=== PATIENT | female | born 1990 | race Caucasian/White ===

== ENCOUNTER 2017-08-14 08:56 | Inpatient (IN) | payer OTHER, SELFPAY ==
[~2017-08-14] VITALS: Ht 170.2 cm; Wt 83.0 kg
[2017-08-14] MEDS ORDERED: DEXAMETHASONE 4 MG/ML, 5ML ONE (09:56)
[2017-08-14] MEDS ORDERED: SODIUM CHLORIDE 0.9% 1,000ML IVBOLUS ONE (10:00)
[2017-08-14 10:37] LABS: HEMATOCRIT 43.3 % (34.6-47.8); HEMOGLOBIN 14.7 g/dL (11.7-16.4); WHITE BLOOD COUNT 20.2 x10^3/uL (3.4-10)
[2017-08-14 10:38] LABS: BLOOD UREA NITROGEN 7 mg/dL (7-18)
[2017-08-14 10:46] LABS: DIFF TOTAL CELLS COUNTED 100 CELL DIFF
[2017-08-14] MEDS ORDERED: DEXAMETHASONE 4 MG/ML, 1ML PO ONE (11:00)
[2017-08-14] MEDS ORDERED: OMNIPAQUE 350 MG/ML, 100ML BOTTLE ONE (11:00)
[2017-08-14 11:14] LABS: LARGE PLATELETS 1+; VERIFY COUNTS? YES
[2017-08-14] MEDS ORDERED: LIDOCAINE 1%, 20ML ONE (11:57)
[2017-08-14] MEDS ORDERED: BENZOCAINE 20% SPRAY 0.5ML ONE (11:57)
[2017-08-14] MEDS ORDERED: AMPICILLIN/SULBACTAM 3 GM in SODIUM CHLORIDE 0.9% 100 ML IV ONE (12:00)
[2017-08-14] MEDS ORDERED: DEXAMETHASONE 4 MG/ML, 1ML IVPush ONE (12:00)
[2017-08-14] MEDS ORDERED: DEXAMETHASONE 4 MG/ML, 1ML ONE (12:17)
[2017-08-14 14:24] VITALS: BP 134/89
[2017-08-14] MEDS ORDERED: LACTATED RINGERS 1,000 ML IV SCH (15:30)
[2017-08-14] MEDS ORDERED: morphine SULFATE 10 MG/ML, 1ML IVPush PRN (15:30)
[2017-08-14] MEDS ORDERED: ONDANSETRON 2MG/ML, 2ML IVPush PRN (15:30)
[2017-08-14] MEDS: HYDROcodone/APAP 7.5-325MG/15ML UDC PO PRN (15:49)
[2017-08-14 16:01] VITALS: BP 134/89
[2017-08-14] MEDS: AMPICILLIN/SULBACTAM 3 GM in SODIUM CHLORIDE 0.9% 100 ML IV SCH (18:00)
[2017-08-14 20:00] VITALS: BP 129/83
[2017-08-14] MEDS: DEXAMETHASONE 10 MG in SODIUM CHLORIDE 0.9% 50 ML IV SCH (20:46)
[2017-08-15] MEDS: AMPICILLIN/SULBACTAM 3 GM in SODIUM CHLORIDE 0.9% 100 ML IV SCH ×5 (00:27→23:56)
[2017-08-15] MEDS: HYDROcodone/APAP 7.5-325MG/15ML UDC PO PRN ×2 (00:28→12:07)
[2017-08-15] MEDS: DEXAMETHASONE 10 MG in SODIUM CHLORIDE 0.9% 50 ML IV SCH (04:12)
[2017-08-15 08:00] VITALS: BP 126/80
[2017-08-15 14:00] VITALS: BP 120/82
[2017-08-15] MEDS ORDERED: LACTATED RINGERS 1,000 ML IV SCH (15:30)
[2017-08-15] MEDS: DEXAMETHASONE 4 MG/ML, 1ML IV SCH (16:43)
[2017-08-15] MEDS ORDERED: IBUPROFEN 200 MG TABLET PO PRN (19:00)
[2017-08-15 20:00] VITALS: BP 117/79
[2017-08-16] MEDS: DEXAMETHASONE 4 MG/ML, 1ML IV SCH (04:30)
[2017-08-16] MEDS: AMPICILLIN/SULBACTAM 3 GM in SODIUM CHLORIDE 0.9% 100 ML IV SCH (06:18)
[2017-08-16] MEDS ORDERED: AMOX1TAB64 PO (07:31)
[2017-08-16] MEDS ORDERED: PRED20TA PO (07:32)
[2017-08-16] MEDS ORDERED: HYDR-883 PO (07:33)
[2017-08-16 07:56] VITALS: BP 138/97
== END 2017-08-16 08:30 | disposition home or self-care (01) | DRG 153 ==
LOC: ED 12:27 → EDIP 12:28 → ED 12:40 → 3WST 13:50
PROVIDERS: ADMIT Otolaryngology; ATTEND Otolaryngology
DX: J36 Peritonsillar abscess (principal); J32.0 Chronic maxillary sinusitis; Z85.41 Personal history of malignant neoplasm of cervix uteri
CPT/HCPCS: 36415; 70491; 80048; 82040; 83605; 85025; 87040; 96361; 96365; 96375; J0295; J1100; Q9967; J7030; J7120

== ENCOUNTER 2017-11-07 15:44 | Emergency (ER) | payer OTHER ==
[~2017-11-07] VITALS: Ht 172.7 cm; Wt 83.1 kg
[~2017-11-07 15:44] MED LIST: AMOX1TAB64 PO; HYDR-883 PO; PRED20TA PO
[2017-11-07 15:46] VITALS: BP 142/96
[2017-11-07] MEDS ORDERED: LIDOCAINE 1%, 20ML SQ ONE (16:00)
[2017-11-07] MEDS ORDERED: DIPH,PERTUSS(ACELL),TET VAC/PF 0.5 ML IM-VACC ONE (16:00)
== END 2017-11-07 16:55 | disposition home or self-care (01) ==
LOC: ED 16:38
DX: W25.XXXA Contact with sharp glass, initial encounter (principal); Y93.89 Activity, other specified; Y99.8 Other external cause status; Y92.009 Unspecified place in unspecified non-institutional (private) residence as the place of occurrence of the external cause
CPT/HCPCS: 12041; 90471; 90715

== ENCOUNTER 2020-04-28 15:13 | Outpatient (CLI) | payer BC, MEDICAID ==
[~2020-04-28] VITALS: Ht 172.7 cm; Wt 96.4 kg
[~2020-04-28 15:13] MED LIST changes: +HYDR-3652 PO; -HYDR-883 PO
[2020-04-28 15:30] VITALS: BP 135/79
[2020-04-28] MEDS ORDERED: PREN1TAB60 PO (15:44)
[2020-04-28 16:44] LABS: MEAN CORPUSCULAR HEMOGLOBIN 31.1 pg (27.0-34.8); MEAN CORPUSCULAR HGB CONC 33.5 g/dL (32.4-35.8); MEAN CORPUSCULAR VOLUME 92.9 fL (80-100); MEAN PLATELET VOLUME 11.1 fL (7.4-10.4); PLATELET COUNT 134 x10^3/uL (130-400); RED BLOOD COUNT 3.52 x10^6/uL (3.82-5.3); RED CELL DISTRIBUTION WIDTH 13.9 % (9.6-15.2)
[2020-04-28 16:45] LABS: MICROSCOPIC NOT IND
[2020-04-28 16:54] LABS: ALANINE AMINOTRANSFERASE 17 U/L (12-78); ALBUMIN 2.6 g/dL (3.4-5.0); ANION GAP 8 mmol/L (5-15); CALCIUM 8.2 mg/dL (8.5-10.1); CHLORIDE 107 mmol/L (98-107); CREATININE 0.59 mg/dL (0.55-1.02)
[2020-04-28 16:55] LABS: BILIRUBIN, DIRECT < 0.1 mg/dL (0.1-0.2)
[2020-04-28 16:57] LABS: ALKALINE PHOSPHATASE 99 U/L (45-117); BILIRUBIN,TOTAL 0.1 mg/dL (0.2-1.0); TOTAL PROTEIN 6.5 g/dL (6.4-8.2)
[2020-04-28 17:07] LABS: MD YES
[2020-04-28 17:10] LABS: BAND#(MANUAL) 0.74 x10^3/uL; BANDS%(MANUAL) 5 % (0-7); EOS#(MANUAL) 0.44 x10^3/uL (0.0-0.4); EOS% (MANUAL) 3 % (1-7); LYMPH#(MANUAL) 2.96 x10^3/uL (1-3.4); LYMPHS% (MANUAL) 20 % (22-44); METAMYELOCYTES# (MANUAL) 0.15 x10^3/uL (0-0); METAMYELOCYTES% (MANUAL) 1 % (0-1); MONOS#(MANUAL) 1.04 x10^3/uL (0.3-2.7); MONOS% (MANUAL) 7 % (2-9); SEG#(MANUAL) 9.47 x10^3/uL (1.8-6.8); SEGS% (MANUAL) 64 % (42-75)
[2020-04-28 17:11] LABS: <PLATELET ESTIMATE> ADEQUATE; <RBC MORPHOLOGY> NORMAL; LARGE PLATELETS 1+
== END 2020-04-28 17:42 | disposition home or self-care (01) ==
LOC: LDOP 15:13
PROVIDERS: ATTEND Obstetrics & Gynecology
DX: O12.03 Gestational edema, third trimester (principal); Z3A.35 35 weeks gestation of pregnancy
CPT/HCPCS: 36415; 59025; 80053; 81003; 82248; 82570; 84156; 84550; 85025; 99201; G0463

== ENCOUNTER 2020-05-26 04:50 | Inpatient (IN) | payer BC, MEDICAID ==
[~2020-05-26] VITALS: Ht 172.7 cm; Wt 99.0 kg
[~2020-05-26 04:50] MED LIST changes: +PREN1TAB60 PO
[2020-05-26] MEDS ORDERED: LACTATED RINGERS 1,000 ML IV SCH (05:27)
[2020-05-26] MEDS ORDERED: METOCLOPRAMIDE 5 MG/ML, 2ML IV ONE (05:30)
[2020-05-26] MEDS ORDERED: LACTATED RINGERS 1,000 ML IVBOLUS ONE (05:30)
[2020-05-26] MEDS ORDERED: SODIUM CITRATE/CITRIC ACID 30 ML UDC PO ONE (05:30)
[2020-05-26 05:33] VITALS: BP 126/64
[2020-05-26] MEDS ORDERED: NEWBORN KIT ONE (05:58)
[2020-05-26] MEDS: PLEASE ENTER HEIGHT AND WEIGHT MC SCH ×3 (06:00→19:48)
[2020-05-26 06:07] LABS: MEAN CORPUSCULAR HEMOGLOBIN 30.8 pg (27.0-34.8); MEAN CORPUSCULAR HGB CONC 33.5 g/dL (32.4-35.8); MEAN PLATELET VOLUME 11.8 fL (7.4-10.4); PLATELET COUNT 122 x10^3/uL (130-400); RED BLOOD COUNT 3.46 x10^6/uL (3.82-5.3); RED CELL DISTRIBUTION WIDTH 14.2 % (9.6-15.2)
[2020-05-26] MEDS ORDERED: OXYTOCIN 30U/ 0.9% NaCL 500ML 500 ML ONE (06:17)
[2020-05-26] MEDS ORDERED: METOCLOPRAMIDE 5 MG/ML, 2ML ONE (06:17)
[2020-05-26] MEDS ORDERED: SODIUM CITRATE/CITRIC ACID 30 ML UDC ONE (06:17)
[2020-05-26 06:30] LABS: BASOPHILS # (AUTO) 0.04 x10^3/uL (0-0.1); BASOPHILS % (AUTO) 0 % (0-1); EOSINOPHILS # (AUTO) 0.25 x10^3/uL (0-0.4); EOSINOPHILS % (AUTO) 2 % (1-7); LYMPHOCYTES % (AUTO) 20 % (22-44); MD SCAN; MONOCYTES # (AUTO) 1.02 x10^3/uL (0.2-0.8); MONOCYTES % (AUTO) 7 % (2-9); NEUTROPHILS # (AUTO) 10.34 x10^3/uL (1.8-6.8); NEUTROPHILS % (AUTO) 71 % (42-75)
[2020-05-26] MEDS ORDERED: CEFAZOLIN 1,000 MG ONE (07:22)
[2020-05-26] MEDS ORDERED: FENTANYL PF 100 MCG/2ML ONE (07:22)
[2020-05-26] MEDS ORDERED: OXYTOCIN 10 UNITS/ML, 1ML ONE (07:22)
[2020-05-26] MEDS ORDERED: ONDANSETRON 2MG/ML, 2ML ONE (07:22)
[2020-05-26] MEDS ORDERED: HYDROmorphone 2 MG/ML, 1ML ONE (07:23)
[2020-05-26] MEDS: LACTATED RINGERS 1,000 ML IV SCH ×6 (07:25→19:47)
[2020-05-26] MEDS ORDERED: IBUPROFEN 600 MG TABLET PO PRN (07:30)
[2020-05-26] MEDS ORDERED: MISOPROSTOL 200 MCG TABLET PR PRN (07:30)
[2020-05-26] MEDS ORDERED: MEASLES,MUMPS&RUBELLA VACC/PF 0.5 ML SQ-VACC PRN (07:30)
[2020-05-26] MEDS ORDERED: RHOGAM FROM BLOOD BANK 1 NOTE EA IM/IV ONE (07:30)
[2020-05-26] MEDS ORDERED: ONDANSETRON 2MG/ML, 2ML IV PRN (07:30)
[2020-05-26] MEDS ORDERED: ACETAMINOPHEN 325 MG TABLET PO PRN ×2 (07:30)
[2020-05-26] MEDS ORDERED: CALCIUM CARBONATE 500 MG TAB.CHEW PO PRN (07:30)
[2020-05-26] MEDS ORDERED: MORPHINE SULFATE 4 MG/ML, 1ML IVPush PRN (07:30)
[2020-05-26] MEDS ORDERED: DIPH,PERTUSS(ACELL),TET VAC/PF NC IM-VACC PRN (07:30)
[2020-05-26] MEDS ORDERED: DIPHENHYDRAMINE 50 MG/ML, 1ML ONE (08:23)
[2020-05-26] MEDS ORDERED: KETOROLAC 30 MG/1 ML ONE (08:26)
[2020-05-26] MEDS: PRENATAL VIT/IRON/FA 1 EACH TABLET PO SCH (09:00)
[2020-05-26] MEDS: OXYTOCIN 30U/ 0.9% NaCL 500ML 500 ML IV SCH ×3 (09:21→19:48)
[2020-05-26 10:35] VITALS: BP 122/82
[2020-05-26] MEDS: KETOROLAC 30 MG/1 ML IV SCH ×3 (13:39→19:52)
[2020-05-26 14:30] VITALS: BP 106/66
[2020-05-26] MEDS: SIMETHICONE 80 MG CHEW TAB PO PRN (16:43)
[2020-05-26] MEDS: OXYcodone/APAP 5/325MG TABLET PO PRN ×2 (16:43→20:44)
[2020-05-26 19:34] LABS: MEAN CORPUSCULAR HEMOGLOBIN 30.9 pg (27.0-34.8); MEAN CORPUSCULAR HGB CONC 33.6 g/dL (32.4-35.8); MEAN CORPUSCULAR VOLUME 91.8 fL (80-100); RED BLOOD COUNT 3.33 x10^6/uL (3.82-5.3); RED CELL DISTRIBUTION WIDTH 14.4 % (9.6-15.2)
[2020-05-26 19:40] LABS: MD YES; MEAN PLATELET VOLUME 11.2 fL (7.4-10.4)
[2020-05-26 19:44] LABS: BANDS%(MANUAL) 2 % (0-7); EOS#(MANUAL) 0.15 x10^3/uL (0.0-0.4); EOS% (MANUAL) 1 % (1-7); LYMPH#(MANUAL) 1.94 x10^3/uL (1-3.4); LYMPHS% (MANUAL) 13 % (22-44); MONOS#(MANUAL) 2.09 x10^3/uL (0.3-2.7); MONOS% (MANUAL) 14 % (2-9); SEG#(MANUAL) 10.43 x10^3/uL (1.8-6.8); SEGS% (MANUAL) 70 % (42-75)
[2020-05-26 19:45] LABS: <PLATELET ESTIMATE> ADEQUATE; <RBC MORPHOLOGY> NORMAL; GIANT PLATELETS 1+; LARGE PLATELETS 1+
[2020-05-26 19:46] LABS: PLATELET COUNT 143 x10^3/uL (130-400)
[2020-05-26 19:56] VITALS: BP 121/82
[2020-05-26] MEDS: DOCUSATE 100 MG CAPSULE PO PRN (22:13)
[2020-05-26 23:51] VITALS: BP 105/68
[2020-05-27] MEDS: OXYcodone/APAP 5/325MG TABLET PO PRN ×4 (01:30→23:00)
[2020-05-27] MEDS: KETOROLAC 30 MG/1 ML IV SCH ×4 (01:30→19:48)
[2020-05-27 08:18] VITALS: BP 126/80
[2020-05-27] MEDS: DOCUSATE 100 MG CAPSULE PO PRN ×2 (08:29→19:48)
[2020-05-27] MEDS: PRENATAL VIT/IRON/FA 1 EACH TABLET PO SCH (08:29)
[2020-05-27] MEDS: SIMETHICONE 80 MG CHEW TAB PO PRN (08:29)
[2020-05-27 20:00] VITALS: BP 106/70
[2020-05-28] MEDS: KETOROLAC 30 MG/1 ML IV SCH (01:22)
[2020-05-28] MEDS: OXYcodone/APAP 5/325MG TABLET PO PRN ×2 (03:10→08:13)
[2020-05-28 08:00] VITALS: BP 121/84
[2020-05-28] MEDS: DOCUSATE 100 MG CAPSULE PO PRN (08:13)
[2020-05-28] MEDS: PRENATAL VIT/IRON/FA 1 EACH TABLET PO SCH (08:13)
[2020-05-28] MEDS ORDERED: IBUP-1222 PO (12:49)
[2020-05-28] MEDS ORDERED: DOCU-131 PO (12:49)
[2020-05-28] MEDS ORDERED: OXYC-302 PO (12:49)
== END 2020-05-28 13:44 | disposition home or self-care (01) | DRG 787 ==
LOC: LDIP 05:24 → 2NW 10:25
PROVIDERS: ADMIT Obstetrics & Gynecology; ATTEND Obstetrics & Gynecology
PROC: 10D00Z1 Extraction of Products of Conception, Low, Open Approach (ICD-10-PCS; principal; 2020-05-26)
DX: O34.211 Maternal care for low transverse scar from previous cesarean delivery (principal); O99.12 Other diseases of the blood and blood-forming organs and certain disorders involving the immune mechanism complicating childbirth; D69.59 Other secondary thrombocytopenia; Z37.0 Single live birth; Z3A.39 39 weeks gestation of pregnancy; Z20.828 Contact with and (suspected) exposure to other viral communicable diseases
CPT/HCPCS: 36415; 82803; 85025; 86592; 86850; 86900; 87635; G0378; J0690; J1170; J1885; J2405; J3010; J1200; J2590; J2765; J7120

== ENCOUNTER 2021-03-26 19:10 | Emergency (ER) | payer BC, MEDICAID ==
[~2021-03-26] VITALS: Ht 175.3 cm; Wt 99.7 kg
[~2021-03-26 19:10] MED LIST changes: +DOCU-131 PO; +HYDR-1067 PO; -HYDR-3652 PO; +IBUP-1222 PO; +OXYC1TAB14 PO
--- NOTE | 2021-03-26 19:28 | NUR ---
PT. TO ED WITH C/O VB SINCE March. REPORTS INCREASED BACK/ABD PAIN AND CRAMPING TODAY. STATES HX OF CERVIAL CA IN 2013 THAT IS NOW RESOLVED. STATES HAS ALWAYS HAD ABNORMAL MENSTURAL CYCLES, BUT NEVER ONE OVER 7 DAYS UNTIL NOW. SKIN PWD. VSS. AWAITING PROVIDER EVAL. SPO2 AND BP MONITORS IN PLACE. CALL LIGHT IN REACH. ALL SAFETY MEASURES OSBERVED.
--- NOTE | 2021-03-26 19:52 | NUR ---
PT. AMBULATORY TO BR WITH STEADY GAIT FOR URINE SAMPLE; CLEAN CATCH INSTRUCTIONS PROVIDED.
--- NOTE | 2021-03-26 20:23 | NUR ---
AWAITING PT. RETURN FROM US.
--- NOTE | 2021-03-26 20:42 | NUR ---
PT. BACK FROM US. URINE SAMPLE COLLECTED AND SENT TO LAB. LABS DRAWN BY [employer]. PT. DENIES NEEDS AT THIS TIME. ALL SAFETY MEASURES MAINTAINED.
[2021-03-26 20:50] LABS: MICROSCOPIC INDICATED
[2021-03-26 20:53] LABS: BASOPHILS % (AUTO) 1 % (0-1); EOSINOPHILS % (AUTO) 1 % (1-7); LYMPHOCYTES % (AUTO) 24 % (22-44); MEAN CORPUSCULAR HEMOGLOBIN 31.9 pg (27.0-34.8); MEAN CORPUSCULAR HGB CONC 33.9 g/dL (32.4-35.8); MEAN PLATELET VOLUME 11.4 fL (7.4-10.4); MONOCYTES % (AUTO) 6 % (2-9); NEUTROPHILS % (AUTO) 69 % (42-75); PLATELET COUNT 124 x10^3/uL (130-400); RED BLOOD COUNT 4.42 x10^6/uL (3.82-5.3); RED CELL DISTRIBUTION WIDTH 13.1 % (9.6-15.2)
[2021-03-26 20:55] LABS: MD NO
[2021-03-26 20:58] LABS: ALANINE AMINOTRANSFERASE 53 U/L (12-78); ALBUMIN 3.5 g/dL (3.4-5.0); ANION GAP 10 mmol/L (5-15); CALCIUM 8.5 mg/dL (8.5-10.1); CHLORIDE 108 mmol/L (98-107); CREATININE 0.87 mg/dL (0.55-1.02)
[2021-03-26] MEDS ORDERED: HYDROcodone/APAP 5/325 TABLET ONE (21:00)
[2021-03-26] MEDS ORDERED: HYDROcodone/APAP 5/325 TABLET PO ONE (21:00)
[2021-03-26] MEDS ORDERED: ONDANSETRON 4 MG TABLET PO ONE (21:00)
[2021-03-26] MEDS ORDERED: ONDANSETRON ODT 4 MG ONE (21:01)
[2021-03-26 21:03] LABS: ALKALINE PHOSPHATASE 73 U/L (45-117); BILIRUBIN,TOTAL 0.2 mg/dL (0.2-1.0); TOTAL PROTEIN 7.3 g/dL (6.4-8.2)
[2021-03-26 22:43] VITALS: BP 139/85
== END 2021-03-26 22:51 | disposition home or self-care (01) ==
LOC: ED 21:17
DX: N92.1 Excessive and frequent menstruation with irregular cycle (principal); N93.8 Other specified abnormal uterine and vaginal bleeding; R10.31 Right lower quadrant pain; R10.32 Left lower quadrant pain
CPT/HCPCS: 36415; 76830; 80053; 81001; 84703; 85025; 87077; 87086; 99285; Q0162; 87186